=== PATIENT | female | born 1990 | race African-American/Black ===

== ENCOUNTER 2018-04-07 13:29 | Emergency (ER) | payer MEDICAID ==
[~2018-04-07] VITALS: Ht 154.9 cm; Wt 68.0 kg
--- NOTE | 2018-04-07 13:33 | NUR ---
ED Nurse Note: Pt is not in the waiting room janey.
--- NOTE | 2018-04-07 13:39 | NUR ---
ED Nurse Note: Pt is still not back to the waiting room.
--- NOTE | 2018-04-07 13:56 | Emergency Room Report ---
History of Present Illness General Chief Complaint: Female Urogenital Problems Source: Patient Present Illness HPI 27-year-old female patient presents the ER complaining of bump on her right labia. Reports is been present for 3 days. Reports history of similar symptoms in the past, states that she previously had a Bartholin cyst drained one year ago after having it for 2 years. Denies dysuria, hematuria, vaginal discharge. Denies discharge from cyst. Reports was seen earlier today at urgent care and referred to the ER. Denies vomiting or diarrhea. Reports pain at site of cyst. Denies concern for STI, states endometrial monogamous sexual relationship. Denies other aggravating or relieving factors. Denies allergies to medications. Patient History Past Medical History: see triage record Last Menstrual Period: 02/24/18 Now: No Reviewed Nursing Documentation: PMH: Agreed; PSxH: Agreed Nursing Documentation-PMH Past Medical History: No Stated History Review of Systems All Other Systems: negative except mentioned in HPI Physical Exam Vital Signs Date Time Temp Pulse Resp B/P (MAP) Pulse Ox O2 Delivery O2 Flow Rate FiO2 04/07/18 13:40 98.4 108 21 101/66 100 Room Air Sp02 EP Interpretation: reviewed, normal General Appearance: well appearing, no apparent distress, alert, GCS 15, non- toxic Head: normocephalic, atraumatic Eyes: bilateral eye normal inspection, bilateral eye PERRL ENT: hearing grossly normal, normal pharynx, no angioedema, normal voice, uvula midline, moist mucus membranes Neck: full range of motion Respiratory: lungs clear, normal breath sounds, no rhonchi, no respiratory distress, no accessory muscle use, no wheezing, speaking full sentences Cardiovascular #1: regular rate, rhythm, no edema Genitourinary: no CVA tenderness, other - right bartholin cyst, two small <1cm nodules, indurated, no fluctuance, no drainage, no overlying erythema Musculoskeletal: back normal, digits/nails normal, gait/station normal, normal range of motion, non-tender Neurologic: alert, oriented x3, responsive, motor strength/tone normal, sensory intact Psychiatric: mood/affect normal Skin: no rash, other - no herpetic lesions, no chancre Medical Decision Making PA Attestation Dr. Valdez is my supervising Physician whom patient management has been discussed with. Diagnostic Impression: Primary Impression: Bartholin cyst ER Course Pt presents to ED c/o vaginal bump x3days. DDX considered but are not limited to Bartholin cyst, herpes,gonorrhea, chlamydia, yeast infection, BV. VITAL SIGNS are WNL, patient is afebrile. ER COURSE Physical exam performed with female inspector and clerk present, shows small less than 1 cm indurated nodules consistent with Bartholin cyst, do not believe patient would benefit from I&D procedure at this time. Provide patient with option of having I&D performed or treating conservatively with outpatient antibiotics, patient elected to treat first with antibiotics. Informed patient to return immediately to the ER if symptoms worsen. Follow-up with [employer] doctor to discuss surgical removal due to recurrence of Bartholin cyst. If symptoms worsen return to the ER to have I&D procedure performed at that time. Advised patient on warm compresses and sitz baths. Foul-smelling fishy odor noted on physical exam, will treat patient clinically for bacterial vaginosis with metronidazole, advised not to drink alcohol while taking medication. Denies concern for STI, does not require treatment for STI at this time. Advised to follow-up with primary care provider for further treatment and evaluation. ER precautions given. Provide with Tylenol No. 3, following completion of medication, begin taking Motrin for pain Tylenol 3 may cause drowsiness, do not take prior to drinking, driving, operating heavy machinery. Patient states that she has an [employer] physician, states she will follow-up with them for surgical removal. States she called her primary care doctor and will schedule follow-up appointment. DISCHARGE: At this time pt is stable for d/c to home. Patient resting comfortably, in no acute distress, nontoxic appearing. Will provide with patient care instructions and any necessary prescriptions. Patient to take medication as instructed. Care plan and follow-up instructions provided. Patient questions asked and answered. Patient instructed to follow-up with primary care provider in 3 - 5 days. ER precautions given. Patient instructed to return to ER immediately for any new or worsening of symptoms. Last Vital Signs Date Time Temp Pulse Resp B/P (MAP) Pulse Ox O2 Delivery O2 Flow Rate FiO2 04/07/18 13:40 98.4 108 21 101/66 100 Room Air Disposition: HOME, SELF-CARE Condition: Stable Scripts Ibuprofen* (MOTRIN*) 600 Mg Tablet 600 MG ORAL Q8H PRN for For Pain, #30 TAB 0 Refills Prov: Abilio Hernandes 04/07/18 Acetaminophen With Codeine (T#3) (TYLENOL #3 TAB*) Y Tab 1 TAB ORAL Q6HR PRN for For Pain, #5 TAB Prov: Abilio Hernandes 04/07/18 Metronidazole* (FLAGYL*) 500 Mg Tablet 500 MG ORAL BID for 7 Days, #14 TAB Prov: Abilio Hernandes 04/07/18 Trimethoprim/Sulfamethoxazole 160/800* (BACTRIM DS TABLET*) 1 Each Tablet 1 TAB ORAL TWICE A DAY for 7 Days, #14 TAB Prov: Abilio Hernandes 04/07/18 Patient Instructions: Bartholin Cyst or Abscess, [id number] Additional Instructions: Followup with primary care provider or return to ER in 2-3 days for wound check. Apply warm compresses to affected area. Take medications as directed. Do not drink alcohol while taking metronidazole. Tylenol #3 may cause drowsiness, do not take prior to drinking, driving, operating heavy machinery. Patient questions asked and answered. ER precautions given, patient instructed to return to ER immediately for any new or worsening of symptoms. Abilio Hernandes Apr 07, 2018 13:56
[2018-04-07] MEDS ORDERED: METRONIDAZOLE500 MG ORAL (14:07)
[2018-04-07] MEDS ORDERED: BACTRIM DS TAB1 EAC1 ORAL (14:07)
[2018-04-07] MEDS ORDERED: ACETAMINOPHEN-1 EAC1 ORAL (14:08)
[2018-04-07] MEDS ORDERED: IBUPROFEN600 MG ORAL (14:08)
[2018-04-07 14:24] VITALS: BP 101/66
--- NOTE | 2018-04-07 14:26 | NUR ---
ED Nurse Note:pt. had vaginal exam done by ER PA in nurse's presence
[2018-04-07 14:27] VITALS: BP 101/66
--- NOTE | 2018-04-07 14:27 | NUR ---
ER DISCHARGE NOTE: Patient is cleared to be discharged per ERMD, pt is aox4, on room air, with stable vital signs. pt was given dc and prescription instructions, pt was able to verbalize understanding. pt is able to ambulate with steady gait. pt took all belongings.
== END 2018-04-07 14:29 | disposition home or self-care (01) ==
LOC: EMR 14:00
DX: N75.0 Cyst of Bartholin's gland (principal)
CPT/HCPCS: 99282

== ENCOUNTER 2018-06-30 21:50 | Emergency (ER) | payer MEDICAID ==
[~2018-06-30] VITALS: Ht 154.9 cm; Wt 59.0 kg
[~2018-06-30 21:50] MED LIST: ACETAMINOPHEN-1 EAC1 ORAL; BACTRIM DS TAB1 EAC1 ORAL; IBUPROFEN600 MG ORAL; METRONIDAZOLE500 MG ORAL
[2018-06-30 22:05] VITALS: BP 128/87
--- NOTE | 2018-06-30 22:05 | NUR ---
ED Nurse Note: Pt arrived ED from home, c/o back pain 09/18 after sliped on the floor at her home's bathroom which had water leaking and wet on the floor. Pt is A/O X4. Vital signs stable at this time, waiting for orders.
--- NOTE | 2018-06-30 22:33 | NUR ---
ED Nurse Note: Pt states that she has period at this time, refused to have Urine sample, informed Dr. Wyatt and was told it is OK without the sample .
--- NOTE | 2018-06-30 22:34 | NUR ---
ED Nurse Note: Meds given as ordered.
[2018-06-30] MEDS ORDERED: IBUPROFEN600 MG ORAL (23:09)
[2018-06-30 23:20] VITALS: BP 128/87
--- NOTE | 2018-06-30 23:20 | NUR ---
ER DISCHARGE NOTE: Patient is cleared to be discharged per Dr. Wyatt. X-ray done. Pt is a o x4 on room air with stable vital signs. Pt was given D/C and prescription instructions and was able to verbalize understanding. Pt's ID band removed. Pt is able to ambulate with steady gait and took all belongings.
--- NOTE | 2018-07-01 00:13 | Emergency Room Report ---
History of Present Illness General Chief Complaint: Lower Back Pain or Injury Source: Patient Present Illness HPI Patient is a 27-year-old female presented after increased low back pain. Patient reports having a recent fall after she reportedly slipped on some water at her apartment. She reports having no loss of consciousness. She reports having increased pain to her upper back. She denies any severe pain. She denies any weakness or numbness to her extremities. She denies any head or neck pain. Allergies: Coded Allergies: No Known Allergies (Unverified , 04/07/18) Patient History Past Medical History: see triage record Last Menstrual Period: 05/24/18 Now: No Reviewed Nursing Documentation: PMH: Agreed; PSxH: Agreed Nursing Documentation-PMH Past Medical History: No Stated History Review of Systems All Other Systems: negative except mentioned in HPI Physical Exam Vital Signs Date Time Temp Pulse Resp B/P (MAP) Pulse Ox O2 Delivery O2 Flow Rate FiO2 06/30/18 21:55 98.1 79 18 133/101 (112) 96 06/30/18 22:05 Room Air General Appearance: well appearing, no apparent distress, alert, GCS 15 Head: normocephalic, atraumatic ENT: hearing grossly normal, normal voice Neck: full range of motion, supple Respiratory: chest non-tender, lungs clear, no respiratory distress, speaking full sentences Cardiovascular #1: normal inspection Gastrointestinal: normal inspection Musculoskeletal: normal inspection, other - muscular tenderness to upper back Neurologic: normal inspection, alert, oriented x3, responsive, oracle applications developer III-XII nml as tested, motor strength/tone normal, normal gait Psychiatric: mood/affect normal Skin: no rash Medical Decision Making Diagnostic Impression: Primary Impression: Fall Additional Impression: Back pain ER Course Patient presented for back pain after a fall. Differential diagnosis include was not limited to fracture, contusion, muscle strain among others. Patient has a benign exam and does not appear to require any further imaging or laboratory testing at this time. Patient was noted to have what appears to be muscular back pain. She does not appear to have any significant trauma requiring any imaging at this time. Patient was advised to follow-up with her primary care physician if she had any worsening of condition. Last Vital Signs Date Time Temp Pulse Resp B/P (MAP) Pulse Ox O2 Delivery O2 Flow Rate FiO2 06/30/18 23:04 98.1 06/30/18 22:05 83 18 128/87 96 Room Air Status: improved Disposition: HOME, SELF-CARE Condition: Stable Scripts Ibuprofen* (MOTRIN*) 600 Mg Tablet 600 MG ORAL Q8H PRN for For Pain, #30 TAB 0 Refills Prov: Darius Wyatt MD 06/30/18 Referrals: [facility],REFERRING (PCP) Patient Instructions: Back Pain, Adult Darius Wyatt MD July 01, 2018 00:13
== END 2018-06-30 23:20 | disposition home or self-care (01) ==
LOC: EMR 22:17
DX: M54.9 Dorsalgia, unspecified (principal); W01.0XXA Fall on same level from slipping, tripping and stumbling without subsequent striking against object, initial encounter; Y92.039 Unspecified place in apartment as the place of occurrence of the external cause
CPT/HCPCS: 99282

== ENCOUNTER 2019-03-26 17:35 | Emergency (ER) | payer MEDICAID ==
[~2019-03-26] VITALS: Ht 154.9 cm; Wt 63.5 kg
[~2019-03-26 17:35] MED LIST changes: +DOXYCYCLINE MO100 MG ORAL; +MUCINEX1200 MG PO; +MUPIROCIN22 GM TOPIC; +PROMETHAZINE-C118 M1 ORAL
[2019-03-26 18:00] VITALS: BP 105/77
--- NOTE | 2019-03-26 18:05 | NUR ---
ED Nurse Note: Patient walked in to ER due to coughing over 2 weeks. AAO x4, VSS at this time.
[2019-03-26] MEDS ORDERED: Albuterol/Ipratropium 3ml neb HHN SCH (18:15)
--- NOTE | 2019-03-26 18:32 | Emergency Room Report ---
History of Present Illness General Chief Complaint: Upper Respiratory Illness Source: Patient Present Illness HPI 28-year-old female with no segment past medical history here complaining of 2 weeks of persistent productive cough. Patient was seen at [facility] [place] [facility] 2 weeks ago also and was diagnosed with atypical pneumonia, given prescription for amoxicillin as well as albuterol inhaler and cough syrup. Patient reports that she never took the amoxicillin as she does not like to swallow pills. Denies chest pain, palpitation, headache and dizziness at this time. Complains of shortness of breath and wheezing has been auscultated. Denies any recent travel. Denies pleuritic chest pain. Denies tobacco smoke, drug use, marijuana use. Denies . Allergies: Coded Allergies: No Known Allergies (Unverified , 04/07/18) Patient History Past Medical History: see triage record Past Surgical History: none Pertinent Family History: none Last Menstrual Period: 02/23/19 Now: No Immunizations: UTD Reviewed Nursing Documentation: PMH: Agreed; PSxH: Agreed Nursing Documentation-PMH Past Medical History: No Stated History Review of Systems All Other Systems: negative except mentioned in HPI Physical Exam Vital Signs Date Time Temp Pulse Resp B/P (MAP) Pulse Ox O2 Delivery O2 Flow Rate FiO2 03/26/19 17:49 98.2 73 18 105/77 (86) 99 Room Air Sp02 EP Interpretation: reviewed, normal General Appearance: no apparent distress, alert, GCS 15, non-toxic Head: normocephalic, atraumatic Eyes: bilateral eye normal inspection, bilateral eye PERRL ENT: normal ENT inspection, hearing grossly normal, EOM grossly intact, normal pharynx, no angioedema Neck: full range of motion, supple, supple/symm/no masses Respiratory: chest non-tender, no rhonchi, speaking full sentences, wheezing Cardiovascular #1: regular rate, rhythm, no edema, no murmur, normal capillary refill Gastrointestinal: soft, no bruit Rectal: deferred Genitourinary: no CVA tenderness Musculoskeletal: back normal, no calf tenderness Neurologic: alert, motor strength/tone normal, oriented x3, sensory intact, responsive, speech normal Psychiatric: judgement/insight normal, memory normal, mood/affect normal, no suicidal/homicidal ideation Skin: no rash Lymphatic: no adenopathy Medical Decision Making PA Attestation All diagnoses and treatment plans were reviewed and discussed with my supervising physician Dr. Leroy Diagnostic Impression: Primary Impression: Pneumonitis ER Course 28-year-old female with no segment past medical history here complaining of 2 weeks of persistent productive cough. Patient was seen at [place] [facility] 2 weeks ago also and was diagnosed with atypical pneumonia, given prescription for amoxicillin as well as albuterol inhaler and cough syrup. Patient reports that she never took the amoxicillin as she does not like to swallow pills. Denies chest pain, palpitation, headache and dizziness at this time. Complains of shortness of breath and wheezing has been auscultated. Denies any recent travel. Denies pleuritic chest pain. Denies tobacco smoke, drug use, marijuana use. Denies . Ddx considered but are not limited to: bronchitis, PNA, URI viral, bacterial bronchitis, pneumonitis Vital signs: are WNL, pt. is afebrile H&PE are most consistent with: Pneumonitis ORDERS: Chest x-ray, Augmentin in liquid form, guaifenesin, prednisolone, albuterol ED INTERVENTIONS: 3 treatments of albuterol ipratropium nebulizer treatment, prednisolone DISCHARGE: At this time pt. is stable for d/c to home. Will provide printed patient care instructions, and any necessary prescriptions. Care plan and follow up instructions have been discussed with the patient prior to discharge. Take medication as directed, follow-up with primary care provider, increase oral hydration, worsening symptoms return to emergency room Chest X-Ray Diagnostic Results Chest X-Ray Diagnostic Results : Chest X-Ray Ordered: Yes # of Views/Limited/Complete: 1 View Indication: Other - Cough EP Interpretation: Yes PA Xray: Interpretation reviewed, by supervising MD, and agrees with findings. Interpretation: no consolidation, no effusion, no pneumothorax Impression: No acute disease Electronically Signed by: Tenisha FONG [employer] Text FINDINGS: Lungs: No consolidation. Pleural space: Unremarkable. No pneumothorax. Heart: Unremarkable. No cardiomegaly. Mediastinum: Unremarkable. Bones/joints: No acute fracture. IMPRESSION: No acute cardiopulmonary disease. Last Vital Signs Date Time Temp Pulse Resp B/P (MAP) Pulse Ox O2 Delivery O2 Flow Rate FiO2 15/20 17:49 98.2 73 18 105/77 (86) 99 Room Air Status: improved Disposition: HOME, SELF-CARE Condition: Stable Scripts Guaifenesin (Guaifenesin) 100 Mg/5 Ml Liquid 15 ML ORAL Q6H, #200 ML 0 Refills Prov: Tenisha Perkins 03/26/19 Albuterol Sulfate (VENTOLIN HFA) 18 Gm Hfa.aer.ad 2 PUFFS INH EVERY 6 HOURS, #18 GM 0 Refills Prov: Tenisha Perkins 03/26/19 Prednisolone* (PRELONE*) 15 Mg/5 Ml Solution 20 ML ORAL DAILY for 5 Days, #100 ML Prov: Tenisha Perkins 03/26/19 Amoxicillin/Potassium Clav 250-62.5 Mg/5 Ml (AUGMENTIN 250-62.5 MG/5 ML) 250 Mg/ 5 Ml Susp.recon 20 ML ORAL BID for 10 Days, #400 ML Prov: Tenisha Perkins 03/26/19 Patient Instructions: Pneumonitis Additional Instructions: Take medication as directed, follow-up with primary care provider, increase oral hydration, if worsening symptoms return to the emergency room Tenisha Perkins Mar 26, 2019 18:32
--- NOTE | 2019-03-26 18:48 | Diagnostic Imaging Report ---
EXAM: XR Chest, 1 View CLINICAL HISTORY: COUGH TECHNIQUE: Frontal view of the chest. COMPARISON: No relevant prior studies available. FINDINGS: Lungs: No consolidation. Pleural space: Unremarkable. No pneumothorax. Heart: Unremarkable. No cardiomegaly. Mediastinum: Unremarkable. Bones/joints: No acute fracture. IMPRESSION: No acute cardiopulmonary disease.
--- NOTE | 2019-03-26 19:06 | NUR ---
ED Nurse Note: report received from HU Law. Pt receiving breathing tx via RT. Pt resting in bed, no s/s of distress noted.
--- NOTE | 2019-03-26 19:06 | NUR ---
HAND-OFF: Report given to HU Chambers.
[2019-03-26] MEDS ORDERED: ROBITUSSIN100 MG/52 ORAL (19:09)
[2019-03-26] MEDS ORDERED: VENTOLIN HFA18 GM INH (19:09)
[2019-03-26] MEDS ORDERED: AUGMENTIN250 MG/51 ORAL (19:09)
[2019-03-26] MEDS ORDERED: PREDNISOLO15 MG/5 M1 ORAL (19:09)
--- NOTE | 2019-03-26 19:15 | NUR ---
ED Nurse Note: Breathing tx completed. Pt removed from equipment, no s/s of distress noted, VSS. Awaiting discharge instructions.
[2019-03-26 19:22] VITALS: BP 112/79
--- NOTE | 2019-03-26 19:22 | NUR ---
ER DISCHARGE NOTE: Patient is cleared to be discharged home with daughter per JAYLIN, pt is aox4, on room air, with stable vital signs. pt was given dc and prescription instructions, pt was able to verbalize understanding, pt id band removed. pt is able to ambulate with steady gait. pt took all belongings.
== END 2019-03-26 19:22 | disposition home or self-care (01) ==
LOC: EMR 19:07
DX: J18.9 Pneumonia, unspecified organism (principal)
CPT/HCPCS: 71045; Z7502; 99284; J7620